=== PATIENT | male | born 1950 | race Caucasian/White ===

== ENCOUNTER → 2018-12-02 | Outpatient (REF) | payer MEDICARE, BC ==
[~2018-12-02] MED LIST: ASPIRIN CHEWABL81 MG OR; CEFEPIME1 GM IV; CHELATED K99 MG OR; COREG6.25 MG PO; ENALAPRIL10 MG PO; FISH OIL1200 MG OR; FORTAZ IV; GLIPIZIDE ER5 MG PO; VANCOMYCIN HCL1.5GM IV; VERAPAMIL120 M1 PO
[2018-12-02 13:36] LABS: URINE BILIRUBIN - DIPSTICK NEGATIVE (NEGATIVE); URINE BLOOD DIPSTICK NEGATIVE (NEGATIVE); URINE COLOR YELLOW; URINE GLUCOSE - DIPSTICK NEGATIVE (NEGATIVE); URINE KETONE NEGATIVE (NEGATIVE); URINE LEUK ESTERASE NEGATIVE (NEGATIVE); URINE NITRITE - DIPSTICK NEGATIVE (Negative); URINE PROTEIN - DIPSTICK NEGATIVE (NEG-TRACE); URINE SPECIFIC GRAVITY 1.015; URINE UROBILINOGEN - DIPSTICK 0.2 E.U./dL (0.2)
== END | disposition home or self-care (01) ==
LOC: LAB 09:13
PROVIDERS: ATTEND Internal Medicine
DX: N30.90 Cystitis, unspecified without hematuria (principal); Z12.5 Encounter for screening for malignant neoplasm of prostate